=== PATIENT | female | born 1985 | race African-American/Black ===

== ENCOUNTER 2018-08-13 16:44 | Emergency (ER) | payer SELFPAY ==
[2018-08-13] MEDS ORDERED: IPRATROPIUM/ALBUTEROL SULFATE 3 ML SOLUTION IH ONE (17:27)
[2018-08-13] MEDS ORDERED: GUAIFENESIN-CODEINE 5 ML SYRUP ONE (17:40)
[2018-08-13] MEDS ORDERED: DEXAMETHASONE SOD PHOSPHATE 10MG/ML 1ML VIAL ONE (17:40)
== END 2018-08-13 19:05 | disposition home or self-care (01) ==
LOC: EDH 16:44
DX: J45.21 Mild intermittent asthma with (acute) exacerbation (principal)
CPT/HCPCS: 94640; 96372; 99283; J1100

== ENCOUNTER 2018-09-13 17:04 | Emergency (ER) | payer OTHER ==
[2018-09-13] MEDS ORDERED: ACETAMINOPHEN 325 MG TAB ONE (17:28)
[2018-09-13 17:49] LABS: RAPID GROUP A STREP POSITIVE (NEGATIVE)
[2018-09-13] MEDS ORDERED: DEXAMETHASONE SOD PHOSPHATE 10MG/ML 1ML VIAL ONE (18:01)
[2018-09-13] MEDS ORDERED: PENICILLIN G BENZATHINE LA 1.2 MILUNITS/2 ML SYG ONE (18:03)
== END 2018-09-13 18:34 | disposition home or self-care (01) ==
LOC: EDH 17:04
DX: J02.9 Acute pharyngitis, unspecified (principal); J45.909 Unspecified asthma, uncomplicated
CPT/HCPCS: 87804 ×2; 87880; 96372 ×2; 99284; J0561; J1100

== ENCOUNTER 2018-11-30 00:14 | Emergency (ER) | payer SELFPAY ==
[2018-11-30] MEDS ORDERED: ACETAMINOPHEN EXTRA STRENGTH 500 MG TABLET ONE (00:51)
[2018-11-30] MEDS ORDERED: GUAIFENESIN-DM 200/20 MG 10 ML ONE (00:51)
== END 2018-11-30 01:18 | disposition home or self-care (01) ==
LOC: EDH 00:14
DX: J06.9 Acute upper respiratory infection, unspecified (principal); J45.909 Unspecified asthma, uncomplicated
CPT/HCPCS: 87804

== ENCOUNTER 2020-02-01 10:30 | Emergency (ER) | payer SELFPAY | END 2020-02-01 11:35 | disposition home or self-care (01) | LOC: EDH 10:30 | DX: J01.10 Acute frontal sinusitis, unspecified (principal); J45.909 Unspecified asthma, uncomplicated ==

== ENCOUNTER 2023-02-13 07:53 | Emergency (ER) | payer OTHER ==
[~2023-02-13] VITALS: Ht 157.5 cm; Wt 104.3 kg
[2023-02-13] MEDS ORDERED: HYDR-3421 PO (08:56)
[2023-02-13] MEDS ORDERED: PERM60CR19 TP (08:56)
[2023-02-13] MEDS ORDERED: HYDROXYZINE 25 MG TABLET PO ONE (09:00)
[2023-02-13 09:01] VITALS: BP 144/58
== END 2023-02-13 09:03 | disposition home or self-care (01) ==
LOC: EDH 07:53
DX: B86 Scabies (principal); J45.909 Unspecified asthma, uncomplicated

== ENCOUNTER 2023-03-12 13:55 | Emergency (ER) | payer OTHER ==
[~2023-03-12] VITALS: Ht 157.5 cm; Wt 95.3 kg
[~2023-03-12 13:55] MED LIST: HYDR-3421 PO; PERM60CR19 TP
[2023-03-12] MEDS ORDERED: IBUPROFEN 600 MG TABLET PO ONE (16:00)
[2023-03-12] MEDS ORDERED: TETANUS/DIPHTHERIA TOXOID [ADULT] 0.5 ML VIAL IM ONE (16:00)
[2023-03-12] MEDS ORDERED: IBUP-2070 PO (16:27)
[2023-03-12] MEDS ORDERED: AMOX1TAB16 PO (16:27)
[2023-03-12 17:27] VITALS: BP 123/73
[2023-03-12] MEDS ORDERED: BACITRACIN 1 EACH PACKET TP SCH (17:30)
== END 2023-03-12 17:38 | disposition home or self-care (01) ==
LOC: EDH 13:55
DX: S51.811A Laceration without foreign body of right forearm, initial encounter (principal); W54.0XXA Bitten by dog, initial encounter; Y93.89 Activity, other specified; Y92.89 Other specified places as the place of occurrence of the external cause; Y99.8 Other external cause status; J45.909 Unspecified asthma, uncomplicated; Z79.899 Other long term (current) drug therapy
CPT/HCPCS: 12002; 73090; 73130; 90471; 90714

== ENCOUNTER 2023-03-21 10:18 | Emergency (ER) | payer OTHER ==
[~2023-03-21] VITALS: Ht 157.5 cm; Wt 99.8 kg
[~2023-03-21 10:18] MED LIST changes: +AMOX1TAB16 PO; +IBUP-2070 PO
[2023-03-21 11:29] VITALS: BP 119/73
== END 2023-03-21 13:18 | disposition home or self-care (01) ==
LOC: EDH 10:18
DX: S51.811D Laceration without foreign body of right forearm, subsequent encounter (principal); S61.411D Laceration without foreign body of right hand, subsequent encounter; S61.511D Laceration without foreign body of right wrist, subsequent encounter; J45.909 Unspecified asthma, uncomplicated; Z79.2 Long term (current) use of antibiotics; Z79.1 Long term (current) use of non-steroidal anti-inflammatories (NSAID); Z79.899 Other long term (current) drug therapy; X58.XXXD Exposure to other specified factors, subsequent encounter
CPT/HCPCS: 99281

== ENCOUNTER 2024-12-25 01:39 | Emergency (ER) | payer SELFPAY ==
[~2024-12-25] VITALS: Ht 157.5 cm; Wt 101.6 kg
--- NOTE | 2024-12-25 02:12 | ERN ---
ED Note History of Present Illness Stated Complaint: C/O TOOTHACHE WITH SWELLING TO FACE Chief Complaint: Tooth Ache/Pain Time Seen by MD: 01:45 Time Seen by Midlevel: 01:45 Dictation: Patient is a 39-year-old female with a history of asthma who presents to the emergency department with right upper dental pain onset four days ago. Patient reports he was seen at [facility] and was given Augmentin for sinusitis. Patient reports she is on day two of the medication. Denies any fevers. No other complaints reported. Allergies: Coded Allergies: No Known Drug Allergies (Unverified Allergy, Unknown, 02/13/23) Home Meds Active Scripts Ibuprofen (Ibuprofen) 600 Mg Tablet, 600 MG PO Q6H PRN for PAIN, #30 TAB Prov:RICHAR MARSHALL V [employer]ENT[employer]IVE 03/12/23 Amoxicillin/Potassium Clav (Amox Tr-K Clv 875-125 mg Tab) 1 Each Tablet, 1 EACH PO BID for 10 Days, #20 TAB Prov:RICHAR MARSHALL 03/12/23 Hydroxyzine HCl (Hydroxyzine HCl) 25 Mg Tablet, 25 MG PO Q4HPRN PRN for ITCHING, #30 TAB 0 Refills Prov:DONNY ALVARADO MD 02/13/23 Permethrin (Elimite) 60 Gm Cream..g., 30 GM TP WEEKLY, #60 GM 0 Refills Apply over the entire skin avoiding the eyes and mouth at bedtime. Wash it off in 8 to 12 hours. Reapply in 1 week. Prov:DONNY ALVARADO MD 02/13/23 Past Medical History Past Medical History: Asthma Surgical History: None Social History: Negative LMP: Nov 27, 2024 RN Note Reviewed/Agreed w/PFSH: Yes Review of System Dictation Constitutional: Negative for fever,chills, and weight loss Eyes: Negative for injury, pain,redness, and discharge ENT: Negative for injury,pain or swelling positive for upper dental pain Cardiovascular: Negative for chest pain, palpitations, and edema Respiratory: Negative for shortness of breath, cough, and wheezing, Abdomen/GI: Negative for abdominal pain, nausea, vomiting, diarrhea, and constipation Back: Negative for injury and pain : Negative for injury, bleeding and discharge MS/Extremity: Negative for injury and deformity Skin: Negative for rash, and discoloration Neuro: Negative for headache, weakness, numbness, tingling, and seizure Psych: Negative for suicide ideation, homicidal ideation, and hallucinations Initial Vital Sign VS Vital Signs Date Time Temp Pulse Resp B/P (MAP) Pulse Ox O2 Delivery O2 Flow Rate FiO2 12/25/24 01:40 97.0 71 20 130/71 100 Room Air Physical Exam Dictation Vital Signs reviewed General Appearance: Alert, oriented x 3, no acute distress, well developed, nourished. Head and Face: non-traumatic. Eyes: PERRL, pink conjunctivas, eyelid no trauma, anterior chamber with arcus senilis. Ears: Pinnas intact and no signs of trauma or erythema ear canals clear and no discharge TM no erythema Nose: No discharge, no bleeding. Oropharynx: Mouth normal, tongue pink patient with multiple missing teeth, caries. pharynx clear,no erythema, tonsils no exudates, no abscesses noted, mucous membrane moist Neck: Supple, non-tender, no thyromegaly, no masses, no JVD, no bruits Breast:Deferred Chest:No tenderness, no crepitus, no paradoxical movement, no retractions Lungs:Clear, well-ventilated, symmetric, no rales, no wheezing, no rhonchi, no stridor, good breath sounds bilaterally Heart: Regular rate, regular rhythm, no murmur, no gallops Vascular: no peripheral edema, Abdomen: Soft, positive bowel sounds, nondistended, no guarding, nontender, no rebound, no masses no hepatomegaly, no splenomegaly, no Vieira's sign, no hernias. Rectal: Deferred Genital: Deferred Neurological: Normal speech, motor function intact, sensory function intact Musculoskeletal: Neck nontender, full range of motion, back nontender, full r deandre of motion, Extremities: nontender, full range of motion Skin: Color pink, dry, no turgor, no rash, no lacerations, no abrasions, no contusions. Lymphatic: Deferred Results (Laboratory/Radiology) Labs Reviewed?: Yes ED Course ED Course Orders Procedure Category Date Status Time Hydrocodone/Apap PHA 12/25/24 Complete 5/325 ([place] 5/325mg) 02:00 Current Medications Medications (Trade) Dose Ordered Sig/Allison Route PRN Reason Start Time Stop Time Status Last Admin Dose Admin Acetaminophen/ Hydrocodone Bitart (NORco 5/325MG) 1 tab ONCE ONCE PO 12/25/24 02:00 12/25/24 02:01 DC Vital Signs Date Time Temp Pulse Resp B/P (MAP) Pulse Ox O2 Delivery O2 Flow Rate FiO2 12/25/24 01:40 97.0 71 20 130/71 100 Room Air Medical Decision Making MDM Patient is a 39-year-old female with a history of asthma who presents to the emergency department with right upper dental pain onset four days ago. Patient reports he was seen at [facility] and was given Augmentin for sinusitis. Patient reports she is on day two of the medication. Denies any fevers. No other complaints reported. Patient already on treatment for sinusitis. Patient with no swelling to face. We will be discharged to follow up with PCP. Patient no acute distress, nontoxic appearance patient instructed to follow up dentist Differential diagnosis: Otitis media, dental caries, dental pain Need for hospitalization: Patient does not meet criteria for hospitalization. There are no social concerns with this patient. DX & DISP Disposition: Discharge Departure Impression: Primary Impression: Pain, dental Condition: Stable Additional Instructions: Continue taking your antibiotics as prescribed. Please follow up with your dentist. Please return to ER if symptoms worsen FOLLOW-UP WITH PRIMARY CARE PROVIDER IN 1 TO 2 DAYS. TAKE MEDICATIONS DIRECTED HERE IN THE EMERGENCY ROOM. OKAY TO CONTINUE HOME MEDICATIONS UNLESS OTHERWISE DISCUSSED DURING YOUR VISIT IN THE EMERGENCY ROOM TODAY. RETURN TO YOUR NEAREST EMERGENCY ROOM IF SYMPTOMS WORSEN OR IF THERE IS NO IMPROVEMENT. CALL 911 IF YOU NEED IMMEDIATE ASSISTANCE. TAKE TYLENOL OR MOTRIN [id number] NEEDED AND IF NO CONTRAINDICATIONS ARE PRESENT. INCREASE ORAL HYDRATION. A WOUND CULTURE OR URINE CULTURE WAS ORDERED HERE IN THE EMERGENCY ROOM DEPARTMENT PLEASE FOLLOW-UP WITH PRIMARY CARE PROVIDER AND ADVISE THEM TO GET REPEAT PORTS FROM OUR FACILITY. IF YOU HAD ANY JESSI WRAP/SPLINTS THAT WERE APPLIED HERE, PLEASE DO NOT REMOVE THEM UNTIL YOU SEE YOUR PRIMARY CARE OR SPECIALTY. Referrals: SELF,REFERRAL (PCP) Time of Disposition: 02:11 I have reviewed the case, and I agree with, Diagnosis and Plan ZACKERY SHIELDS Dec 25, 2024 02:12
[2024-12-25] MEDS: HYDROcodone/APAP 5/325 1 TAB TABLET PO ONE (02:45)
[2024-12-25 02:54] VITALS: BP 124/65; PULSE 75; RESP 18; TEMP 98.5; O2SAT 98
== END 2024-12-25 02:58 | disposition home or self-care (01) ==
LOC: EDH 01:39
DX: K08.89 Other specified disorders of teeth and supporting structures (principal); J45.909 Unspecified asthma, uncomplicated; Z79.899 Other long term (current) drug therapy
CPT/HCPCS: 99283